=== PATIENT | male | born 1945 | race Caucasian/White ===

== ENCOUNTER 2025-06-26 14:07 | Emergency (ER) | payer MEDICARE, OTHER ==
[~2025-06-26] VITALS: Ht 182.9 cm; Wt 86.0 kg
[2025-06-26 14:50] LABS: BASO # 0.0 10^3/uL (0.0-0.2); BASO % 0.4 % (0.0-1.0); EOS # 0.4 10^3/uL (0.0-0.5); EOS % 4.6 % (0.0-3.0); LYMPH # 1.1 10^3/uL (1.5-5.0); LYMPH % 14.7 % (24.0-44.0); MONO # 0.8 10^3/uL (0.0-0.8); MONO % 9.9 % (2.0-8.0); NEUTROPHILS # 5.3 10^3/uL (1.5-8.5); NEUTROPHILS % 70.1 % (36.0-66.0); PLATELET COUNT, AUTOMATED 206 10^3/uL (150-450)
[2025-06-26 15:00] LABS: INR 1.04
[2025-06-26 15:19] LABS: ALT/SGPT 40 U/L (7.0-40); AST/SGOT 38 U/L (<34); CK-MB VALUE MASS < 1.0 NG/ML (<3.6)
[2025-06-26 15:24] LABS: CPK CREATINE PHOSPHOKINASE 81 U/L (46-171)
[2025-06-26 16:15] LABS: CK-MB VALUE MASS < 1.0 NG/ML (<3.6); CPK CREATINE PHOSPHOKINASE 67 U/L (46-171)
[2025-06-26] MEDS ORDERED: ECOT81TA5 PO (18:01)
[2025-06-26] MEDS ORDERED: TELM1TAB35 (18:01)
[2025-06-26] MEDS ORDERED: CARV25TA (18:01)
[2025-06-26] MEDS ORDERED: SIMV20TA22 (18:01)
[2025-06-26] MEDS ORDERED: FLEC1TAB (18:01)
[2025-06-26] MEDS ORDERED: ELIQ5TAB PO (18:24)
[2025-06-26] MEDS: APIXABAN 5 MG TAB PO ONE (18:26)
[2025-06-26 18:33] VITALS: BP 162/95; TEMP 97.4; O2SAT 97
== END 2025-06-26 18:46 | disposition home or self-care (01) ==
LOC: M ED 14:07
DX: I48.91 Unspecified atrial fibrillation (principal); I10 Essential (primary) hypertension; I45.4 Nonspecific intraventricular block; Z87.891 Personal history of nicotine dependence; Z79.01 Long term (current) use of anticoagulants; Z79.82 Long term (current) use of aspirin; Z79.899 Other long term (current) drug therapy